=== PATIENT | male | born 1970 | race Caucasian/White ===

== ENCOUNTER 2019-04-17 14:40 | Emergency (ER) | payer OTHER ==
[2019-04-17] MEDS ORDERED: diphenhydrAMINE 50 MG Cap PO ONE (14:52)
[2019-04-17] MEDS ORDERED: methylPREDNISolone Sodium Succinate 125 MG/2 ML SDV IM ONE (14:52)
--- NOTE | 2019-04-17 14:54 | EDM.PDOC ---
ED HPI GENERAL MEDICAL PROBLEM - General Chief Complaint: Allergic Reaction Stated Complaint: HARD TIME BREATHING, SWOLLEN THROAT Time Seen by Provider: 04/17/19 14:51 Source of Information: Reports: Patient History Limitations: Reports: No Limitations - History of Present Illness INITIAL COMMENTS - FREE TEXT/NARRATIVE: HISTORY AND PHYSICAL: History of present illness: Patient is a 49-year-old male who presents to the emergency room with complaints of sensation of his throat feeling tight. Patient states that he had eaten a piece of pizza at a gas station and shortly after had the sensation that his blood pressure was elevated. He states he pulled over while driving in his vehicle and checked his blood sugar and it was 180/100. He shortly after felt the sensation of his throat feeling tight and he is having difficulty breathing. He came to the emergency room as he was concerned he is having an allergic reaction. Patient has no known food or drug allergies. Has not had any new exposures. Patient denies any fever, chills, headache, change in vision, syncope or near syncope. Denies any chest pain, back pain, shortness of breath or cough. Denies any abdominal pain, nausea, vomiting, diarrhea, constipation or dysuria. Has not noted any blood in urine or stool. Patient has been eating and drinking appropriately. Review of systems: As per history of present illness and below otherwise all systems reviewed and negative. Past medical history: As per history of present illness and as reviewed below otherwise noncontributory. Surgical history: As per history of present illness and as reviewed below otherwise noncontributory. Social history: See social history for further information Family history: As per history of present illness and as reviewed below otherwise noncontributory. Physical exam: General: Well-developed and well-nourished 49-year-old male. Alert and oriented. Nontoxic appearing and in no acute distress. HEENT: Atraumatic, normocephalic, pupils equal and reactive bilaterally, negative for conjunctival pallor or scleral icterus, mucous membranes moist, trachea midline. No drooling or trismus noted. No meningeal signs. No hot potato voice noted. Lungs: Clear to auscultation, breath sounds equal bilaterally, chest nontender. Heart: S1S2, regular rate and rhythm without overt murmur Abdomen: Soft, nondistended, nontender. Skin: Intact, warm, dry. No lesions or rashes noted. Extremities: Atraumatic, moves all extremities per self without difficulty or deficits, negative for cords or calf pain. Neurovascular unremarkable. Neuro: Awake, alert, oriented. Cranial nerves II through XII unremarkable. Cerebellum unremarkable. Motor and sensory unremarkable throughout. Exam nonfocal. Notes: Physical examination is within normal limits. He is agreeable to imaging and medications. Patient feels improved after medications. He declines x-ray. Supportive care measures were reviewed and discussed. Voices understanding and is agreeable to plan of care. Denies any further questions or concerns at this time. Diagnostics: Soft Tissue Neck x-ray (declined) Therapeutics: Solu-Medrol, Benadryl Prescription: Medrol Dosepak Impression: Encounter for medical screening exam Possible allergic reaction Plan: 1. Avoid triggers. Continue to monitor for possible exposures/triggers/foods. 2. While symptomatic continue to routinely take Benadryl 50mg every 4-6 hours and Zantac 150mg twice daily. Take the Medrol dose pack as prescribed. 3. Please follow up with your Primary care doctor tomorrow. Return to the ED as needed and as discussed. Definitive disposition and diagnosis as appropriate pending reevaluation and review of above. - Related Data Allergies Allergy/AdvReac Type Severity Reaction Status Date / Time No Known Allergies Allergy Verified 04/17/19 14:45 Home Meds: Home Meds Allopurinol [Zyloprim] 300 mg PO ASDIRECTED 04/17/19 [History] Diltiazem [Diltiazem XR] 240 mg PO ASDIRECTED 04/17/19 [History] Olmesartan/Hydrochlorothiazide [Benicar HCT 20-12.5 MG] 1 tab PO DAILY 04/17/19 [History] Pantoprazole [ProTONIX] 40 mg PO DAILY 04/17/19 [History] Saxagliptin HCl/Metformin HCl [Kombiglyze XR 2.5-1,000 MG] 1 each PO ASDIRECTED 04/17/19 [History] Tadalafil [Cialis] 5 mg PO ASDIRECTED 04/17/19 [History] Testosterone [Androderm] 1 each TD ASDIRECTED 04/17/19 [History] atorvaSTATin [Lipitor] 10 mg PO BEDTIME 04/17/19 [History] ED ROS ALLERGIC REACTION - Review of Systems Review Of Systems: Comprehensive ROS is negative, except as noted in HPI. ED EXAM GENERAL NO PERIP PULSE - Physical Exam Exam: See Below (See dictation) Course - Vital Signs Last Recorded V/S: Last Vital Signs Temp 96.7 F 04/17/19 14:49 Pulse 82 04/17/19 14:49 Resp 16 04/17/19 14:49 BP 158/88 H 04/17/19 14:49 Pulse Ox 97 04/17/19 14:49 - Orders/Labs/Meds Orders: Active Orders 24 hr Category Date Time Status Neck Soft Tissue [CR] Stat Exams 04/17/19 14:52 Stop Req Meds: Medications Discontinued Medications Generic Name Dose Route Start Last Admin Trade Name Freq PRN Reason Stop Dose Admin Diphenhydramine HCl 50 mg 04/17/19 14:52 04/17/19 15:08 Benadryl PO 04/17/19 14:53 50 mg ONETIME ONE Administration Methylprednisolone Sodium Succinate 125 mg 04/17/19 14:52 04/17/19 15:09 Solu-Medrol IM 04/17/19 14:53 125 mg ONETIME ONE Administration Departure - Departure Time of Disposition: 15:16 Disposition: Home, Self-Care 01 Clinical Impression: Encounter for medical screening examination Allergic reaction Qualifiers: Encounter type: initial encounter Qualified Code(s): T78.40XA - Allergy, unspecified, initial encounter - Discharge Information Referrals: PCP,Unobtain [Primary Care Provider] - Additional Instructions: The following information is given to patients seen in the emergency department who are being discharged to home. This information is to outline your options for follow-up care. We provide all patients seen in our emergency department with a follow-up referral. The need for follow-up, as well as the timing and circumstances, are variable depending upon the specifics of your emergency department visit. If you don't have a primary care physician on staff, we will provide you with a referral. We always advise you to contact your personal physician following an emergency department visit to inform them of the circumstance of the visit and for follow-up with them and/or the need for any referrals to a consulting specialist. The emergency department will also refer you to a specialist when appropriate. This referral assures that you have the opportunity for follow-up care with a specialist. All of these measure are taken in an effort to provide you with optimal care, which includes your follow-up. Under all circumstances we always encourage you to contact your private physician who remains a resource for coordinating your care. When calling for follow-up care, please make the office aware that this follow-up is from your recent emergency room visit. If for any reason you are refused follow-up, please contact the [facility] Emergency Department at and asked to speak to the emergency department charge nurse. [facility] [address] [place] [id number] [place] [id number] 1. Avoid triggers. Continue to monitor for possible exposures/triggers/foods. 2. While symptomatic continue to routinely take Benadryl 50mg every 4-6 hours and Zantac 150mg twice daily. Take the Medrol dose pack as prescribed. 3. Please follow up with your Primary care doctor tomorrow. Return to the ED as needed and as discussed. - My Orders Last 24 Hours: My Active Orders 04/17/19 14:52 Neck Soft Tissue [CR] Stat - Assessment/Plan Last 24 Hours: My Active Orders 04/17/19 14:52 Neck Soft Tissue [CR] Stat
== END 2019-04-17 15:41 | disposition home or self-care (01) ==
LOC: MW.ED 14:40
DX: T78.1XXA Other adverse food reactions, not elsewhere classified, initial encounter (principal); Z79.899 Other long term (current) drug therapy
CPT/HCPCS: 96372; 99284; A9270; J2930; 99283

== ENCOUNTER 2019-04-18 11:45 | Emergency (ER) | payer OTHER ==
[2019-04-18] MEDS ORDERED: Sodium Chloride 0.9% 1,000 ML IV ONE (11:58)
[2019-04-18] MEDS ORDERED: LORazepam 1 MG Tab PO ONE (12:09)
--- NOTE | 2019-04-18 12:36 | CR ---
Indication: Increased heart rate. Headache. Technique: A single AP portable view of the chest was obtained. Comparison: None Findings: The heart is normal in size. The lungs are clear. No infiltrate, pleural effusion, or pneumothorax is identified. Impression: No acute cardiopulmonary process Dictated by Cristina Waters MD @ Apr 18 2019 12:32PM Signed by Dr. Cristina Waters @ Apr 18 2019 12:34PM
[2019-04-18 12:43] LABS: BLOOD UREA NITROGEN,BUN 15 mg/dL (7.0-18.0); CARBON DIOXIDE,CO2 28.3 mmol/L (21.0-32.0); CHLORIDE,CL 100 mmol/L (98-107); GLUCOSE RANDOM 105 mg/dL (74-106); POTASSIUM,K 4.1 mmol/L (3.5-5.1); SODIUM,NA 137 mmol/L (136-148)
--- NOTE | 2019-04-18 12:47 | EDM.PDOC ---
ED HPI GENERAL MEDICAL PROBLEM - General Chief Complaint: Cardiovascular Problem Stated Complaint: TROUBLE BREATHING, FAST HEART RATE Time Seen by Provider: 04/18/19 11:52 Source of Information: Reports: Patient History Limitations: Reports: No Limitations - History of Present Illness INITIAL COMMENTS - FREE TEXT/NARRATIVE: HISTORY AND PHYSICAL: History of present illness: Patient is a 49-year-old male who presents to the emergency room with complaints of chest tightness and tachycardia. Patient was seen in the emergency room yesterday for concerns of a possible allergic reaction. He states he had eaten some pizza and felt that his blood pressure was elevated and checked his pulse and blood pressure, both which were elevated. He proceeded to the emergency room for evaluation. Upon arrival he states that he feels he may have been overreacting and feels anxiety may have been a component. He did receive some Benadryl and Solu-Medrol at that time. He states being discharged she felt well and had a normal evening. This morning he drank some coffee and had breakfast. Continued to check his blood pressure again which was normal but said he felt somewhat anxious and noticed his pulse was in the 130s. His who is at the bedside states that she "knows this is anxiety " and proceeds to tell me how they are planning on driving in this weather to [place] today. Patient denies any fever, chills, headache, change in vision, syncope or near syncope. Denies any chest pain, back pain, shortness of breath or cough. Denies any abdominal pain, nausea, vomiting, diarrhea, constipation or dysuria. Has not noted any blood in urine or stool. Patient has been eating and drinking appropriately. Review of systems: As per history of present illness and below otherwise all systems reviewed and negative. Past medical history: As per history of present illness and as reviewed below otherwise noncontributory. Surgical history: As per history of present illness and as reviewed below otherwise noncontributory. Social history: See social history for further information Family history: As per history of present illness and as reviewed below otherwise noncontributory. Physical exam: General: Well-developed and well-nourished 49-year-old male. Alert and oriented. Nontoxic appearing and in no acute distress. HEENT: Atraumatic, normocephalic, pupils equal and reactive bilaterally, negative for conjunctival pallor or scleral icterus, mucous membranes moist, TMs normal bilaterally, throat clear, neck supple, nontender, trachea midline. No drooling or trismus noted. No meningeal signs. No hot potato voice noted. Lungs: Clear to auscultation, breath sounds equal bilaterally, chest nontender. Heart: S1S2, regular rate and rhythm without overt murmur Abdomen: Soft, nondistended, nontender. Negative for masses or hepatosplenomegaly. Negative for costovertebral tenderness. Pelvis: Stable nontender. Skin: Intact, warm, dry. No lesions or rashes noted. Extremities: Atraumatic, moves all extremities per self without difficulty or deficits, negative for cords or calf pain. Neurovascular unremarkable. Neuro: Awake, alert, oriented. Cranial nerves II through XII unremarkable. Cerebellum unremarkable. Motor and sensory unremarkable throughout. Exam nonfocal. Notes: My physical examination is within normal limits. His EKG is unremarkable. He is agreeable although hesitant to diagnostics at this time. Vital signs have improved. Patient states he's been asymptomatic since being here in the emergency room. He does mention that yesterday he had some unsettling news from his employer which did cause increased anxiety. I did inform the patient that his white count is elevated. We discussed doing further lab work to explore this, he declines. He would like to be discharged home. We discussed admission for his presentation today and current complaints. He declined stating he would like to be discharged, regardless of education. He is aware of the risks of being discharged to home. is at bedside and is agreeable with patient about going home. Supportive care measures were reviewed and discussed. Voices understanding and is agreeable to plan of care. Denies any further questions or concerns at this time. Diagnostics: CBC, CMP, Troponin, EKG, CXR Therapeutics: IV fluid, Ativan Prescription: Ativan (#6) Impression: Anxiety about health Tachycardia Plan: 1. Please use Tylenol and/or Ibuprofen as needed for pain and fever management. 2. Get plenty of Rest. Encourage fluids to prevent dehydration. Please avoid any stimulants such as coffee, alcohol or caffeinated beverages. 3. Please follow up with your primary care provider, Dr Gupta. Return to the ED as needed as discussed. Definitive disposition and diagnosis as appropriate pending reevaluation and review of above. - Related Data Allergies Allergy/AdvReac Type Severity Reaction Status Date / Time No Known Allergies Allergy Verified 04/18/19 11:50 Home Meds: Home Meds Allopurinol [Zyloprim] 300 mg PO ASDIRECTED 04/17/19 [History] Diltiazem [Diltiazem XR] 240 mg PO ASDIRECTED 04/17/19 [History] Olmesartan/Hydrochlorothiazide [Benicar HCT 20-12.5 MG] 1 tab PO DAILY 04/17/19 [History] Pantoprazole [ProTONIX] 40 mg PO DAILY 04/17/19 [History] Saxagliptin HCl/Metformin HCl [Kombiglyze XR 2.5-1,000 MG] 1 each PO ASDIRECTED 04/17/19 [History] Tadalafil [Cialis] 5 mg PO ASDIRECTED 04/17/19 [History] Testosterone [Androderm] 1 each TD ASDIRECTED 04/17/19 [History] atorvaSTATin [Lipitor] 10 mg PO BEDTIME 04/17/19 [History] Past Medical History Cardiovascular History: Reports: Hypertension - Infectious Disease History Infectious Disease History: Reports: Chicken Pox - Past Surgical History GI Surgical History: Reports: Hernia, Inguinal Musculoskeletal Surgical History: Reports: Arthroscopic Knee Social & Family History - Family History Family Medical History: Noncontributory - Tobacco Use Smoking Status *Q: Former Smoker Used Tobacco, but Quit: Yes Month/Year Tobacco Last Used: 8 year - Caffeine Use Caffeine Use: Reports: Coffee - Recreational Drug Use Recreational Drug Use: No ED ROS GENERAL - Review of Systems Review Of Systems: Comprehensive ROS is negative, except as noted in HPI. ED EXAM, GENERAL - Physical Exam Exam: See Below Course - Vital Signs Last Recorded V/S: Last Vital Signs Temp 97.6 F 04/18/19 11:51 Pulse 105 H 04/18/19 11:51 Resp 18 04/18/19 11:51 BP 138/91 H 04/18/19 11:51 Pulse Ox 94 L 04/18/19 11:51 - Orders/Labs/Meds Orders: Active Orders 24 hr Category Date Time Status EKG Documentation Completion [RC] STAT Care 04/18/19 11:58 Active Labs: Laboratory Tests 04/18/19 04/18/19 Range/Units 12:05 12:05 WBC 16.40 H (4.0-11.0) K/uL RBC 5.08 (4.50-5.90) M/uL Hgb 16.0 (13.0-17.0) g/dL Hct 45.6 (38.0-50.0) % MCV 89.8 (80.0-98.0) fL MCH 31.5 (27.0-32.0) pg MCHC 35.1 (31.0-37.0) g/dL RDW Std Deviation 43.5 (28.0-62.0) fl RDW Coeff of Keiko 13 (11.0-15.0) % Plt Count 221 (150-400) K/uL MPV 9.70 (7.40-12.00) fL Neut % (Auto) 84.6 H (48.0-80.0) % Lymph % (Auto) 9.0 L (16.0-40.0) % [place] % (Auto) 6.3 (0.0-15.0) % Eos % (Auto) 0.0 (0.0-7.0) % Baso % (Auto) 0.1 (0.0-1.5) % Neut # (Auto) 13.9 H (1.4-5.7) K/uL Lymph # (Auto) 1.5 (0.6-2.4) K/uL [place] # (Auto) 1.0 H (0.0-0.8) K/uL Eos # (Auto) 0.0 (0.0-0.7) K/uL Baso # (Auto) 0.0 (0.0-0.1) K/uL Nucleated RBC % 0.0 /100WBC Nucleated RBCs # 0 K/uL Sodium 137 (136-148) mmol/L Potassium 4.1 (3.5-5.1) mmol/L Chloride 100 (98-107) mmol/L Carbon Dioxide 28.3 (21.0-32.0) mmol/L BUN 15 (7.0-18.0) mg/dL Creatinine 1.3 (0.8-1.3) mg/dL Est Cr Clr Drug Dosing 67.23 mL/min Estimated GFR (MDRD) 58.2 ml/min Glucose 105 (74-106) mg/dL Calcium 9.6 (8.5-10.1) mg/dL Total Bilirubin 0.4 (0.2-1.0) mg/dL AST 15 (15-37) IU/L ALT 24 (14-63) IU/L Alkaline Phosphatase 85 (46-116) U/L Troponin I < 0.050 (0.000-0.056) ng/mL Total Protein 8.2 (6.4-8.2) g/dL Albumin 4.2 (3.4-5.0) g/dL Globulin 4.0 (2.6-4.0) g/dL Albumin/Globulin Ratio 1.0 (0.9-1.6) TSH 3rd Generation 0.43 (0.36-3.74) uIU/mL Meds: Medications Discontinued Medications Generic Name Dose Route Start Last Admin Trade Name Freq PRN Reason Stop Dose Admin Sodium Chloride 1,000 mls @ 999 mls/hr 04/18/19 11:58 04/18/19 12:42 Normal Saline IV 04/18/19 12:58 999 mls/hr .Bolus ONE Administration Lorazepam 1 mg 04/18/19 12:09 04/18/19 12:42 Ativan PO 04/18/19 12:10 1 mg ONETIME ONE Administration Departure - Departure Time of Disposition: 13:00 Disposition: Home, Self-Care 01 Clinical Impression: Anxiety about health, Tachycardia Referrals: PCP,Unknown [Primary Care Provider] - Forms: ED Department Discharge Additional Instructions: The following information is given to patients seen in the emergency department who are being discharged to home. This information is to outline your options for follow-up care. We provide all patients seen in our emergency department with a follow-up referral. The need for follow-up, as well as the timing and circumstances, are variable depending upon the specifics of your emergency department visit. If you don't have a primary care physician on staff, we will provide you with a referral. We always advise you to contact your personal physician following an emergency department visit to inform them of the circumstance of the visit and for follow-up with them and/or the need for any referrals to a consulting specialist. The emergency department will also refer you to a specialist when appropriate. This referral assures that you have the opportunity for follow-up care with a specialist. All of these measure are taken in an effort to provide you with optimal care, which includes your follow-up. Under all circumstances we always encourage you to contact your private physician who remains a resource for coordinating your care. When calling for follow-up care, please make the office aware that this follow-up is from your recent emergency room visit. If for any reason you are refused follow-up, please contact the [facility] Emergency Department at and asked to speak to the emergency department charge nurse. [facility] [address] [place] [id number] [facility] [address] [place] [id number] 1. Please use Tylenol and/or Ibuprofen as needed for pain and fever management. 2. Get plenty of Rest. Encourage fluids to prevent dehydration. Please avoid any stimulants such as coffee, alcohol or caffeinated beverages. 3. Please follow up with your primary care provider, Dr Gupta. Return to the ED as needed as discussed. - My Orders Last 24 Hours: My Active Orders 04/18/19 11:58 EKG Documentation Completion [RC] STAT - Assessment/Plan Last 24 Hours: My Active Orders 04/18/19 11:58 EKG Documentation Completion [RC] STAT
== END 2019-04-18 13:32 | disposition home or self-care (01) ==
LOC: MW.ED 11:45
DX: R00.0 Tachycardia, unspecified (principal); F41.9 Anxiety disorder, unspecified; I10 Essential (primary) hypertension; Z79.899 Other long term (current) drug therapy; Z87.891 Personal history of nicotine dependence
CPT/HCPCS: 36415; 71045; 80053; 84443; 84484; 85025; 93005; 96360; 99285; A9270; J7040; 99283

== ENCOUNTER 2020-03-05 14:51 | Emergency (ER) | payer OTHER ==
--- NOTE | 2020-03-05 16:18 | EDM.PDOC ---
ED HPI GENERAL MEDICAL PROBLEM - General Stated Complaint: RIB INJURY Time Seen by Provider: 03/05/20 16:10 - History of Present Illness INITIAL COMMENTS - FREE TEXT/NARRATIVE: History of present illness: Patient presents with right sided chest wall pain after a slip and fall at home. He was moving some plants from outdoors to the inside due to the snow and slipped on wet floor and fell onto the back of a sofa striking the right anterior mid chest wall. He denies any shortness of breath he does have some sharp pain at that location with a deep breath but no dyspnea no other injuries did not strike his head he is not on blood thinners nothing makes it better breathing makes it worse Review of systems: As per history of present illness and below otherwise all systems reviewed and negative. Past medical history: As per history of present illness and as reviewed below otherwise noncontributory. Surgical history: As per history of present illness and as reviewed below otherwise noncontributory. Social history: No reported history of drug or alcohol abuse. Family history: As per history of present illness and as reviewed below otherwise noncontributory. Physical exam: HEENT: Atraumatic, normocephalic, pupils reactive, negative for conjunctival pallor or scleral icterus, mucous membranes moist, throat clear, neck supple, nontender, trachea midline. Lungs: Clear to auscultation, breath sounds equal bilaterally, chest nontender. Heart: S1S2, regular, negative for clicks, rubs, or JVD. Abdomen: Soft, nondistended, nontender. Negative for masses or hepatosplenomegaly. Negative for costovertebral tenderness. Pelvis: Stable nontender. Genitourinary: Deferred. Rectal: Deferred. Extremities: Atraumatic, negative for cords or calf pain. Neurovascular unremarkable. Neuro: Awake, alert, oriented. Cranial nerves II through XII unremarkable. Cerebellum unremarkable. Motor and sensory unremarkable throughout. Exam nonfocal. Chest wall: There is tenderness over rib 9 anterior laterally on the right there is no crepitance step-off. Diagnostics: [] Therapeutics: [] Impression: Wall contusion [] Plan: Suggested 2 view chest x-ray to rule out pneumothorax patient is reassured just wants to have an ice pack and be discharged. [] Definitive disposition and diagnosis as appropriate pending reevaluation and review of above. - Related Data Allergies Allergy/AdvReac Type Severity Reaction Status Date / Time No Known Allergies Allergy Verified 04/18/19 11:50 Home Meds: Home Meds Diltiazem [Diltiazem XR] 240 mg PO ASDIRECTED 04/17/19 [History] Olmesartan/Hydrochlorothiazide [Benicar HCT 20-12.5 MG] 1 tab PO DAILY 04/17/19 [History] Pantoprazole [ProTONIX] 40 mg PO DAILY 04/17/19 [History] Saxagliptin HCl/Metformin HCl [Kombiglyze XR 2.5-1,000 MG] 1 each PO ASDIRECTED 04/17/19 [History] Testosterone [Androderm] 1 each TD ASDIRECTED 04/17/19 [History] allopurinoL [Zyloprim] 300 mg PO ASDIRECTED 04/17/19 [History] atorvaSTATin [Lipitor] 10 mg PO BEDTIME 04/17/19 [History] tadalafiL [Cialis] 5 mg PO ASDIRECTED 04/17/19 [History] Past Medical History Cardiovascular History: Reports: Hypertension - Infectious Disease History Infectious Disease History: Reports: Chicken Pox - Past Surgical History GI Surgical History: Reports: Hernia, Inguinal Musculoskeletal Surgical History: Reports: Arthroscopic Knee Social & Family History - Family History Family Medical History: Noncontributory - Caffeine Use Caffeine Use: Reports: Coffee ED ROS GENERAL - Review of Systems Review Of Systems: See Below ED EXAM, GENERAL - Physical Exam Exam: See Below Departure - Departure Time of Disposition: 16:17 Disposition: DC/Tfer to SNF 03 Condition: Good Clinical Impression: Chest wall contusion - Discharge Information *PRESCRIPTION DRUG MONITORING PROGRAM REVIEWED*: Not Applicable *COPY OF PRESCRIPTION DRUG MONITORING REPORT IN PATIENT [facility]: Not Applicable Instructions: Rib Contusion Additional Instructions: The following information is given to patients seen in the emergency department who are being discharged to home. This information is to outline your options for follow-up care. We provide all patients seen in our emergency department with a follow-up referral. The need for follow-up, as well as the timing and circumstances, are variable depending upon the specifics of your emergency department visit. If you don't have a primary care physician on staff, we will provide you with a referral. We always advise you to contact your personal physician following an emergency department visit to inform them of the circumstance of the visit and for follow-up with them and/or the need for any referrals to a consulting specialist. The emergency department will also refer you to a specialist when appropriate. This referral assures that you have the opportunity for follow-up care with a specialist. All of these measure are taken in an effort to provide you with optimal care, which includes your follow-up. Under all circumstances we always encourage you to contact your private physician who remains a resource for coordinating your care. When calling for follow-up care, please make the office aware that this follow-up is from your recent emergency room visit. If for any reason you are refused follow-up, please contact the [facility] Emergency Dep artment at and asked to speak to the emergency department charge nurse.
== END 2020-03-05 16:12 | disposition home or self-care (01) ==
LOC: MW.ED 14:51
DX: S20.211A Contusion of right front wall of thorax, initial encounter (principal); I10 Essential (primary) hypertension; Z79.899 Other long term (current) drug therapy; W00.0XXA Fall on same level due to ice and snow, initial encounter; Y92.009 Unspecified place in unspecified non-institutional (private) residence as the place of occurrence of the external cause
CPT/HCPCS: 99282; 99285